=== PATIENT | male | born 1965 | race Caucasian/White ===

== ENCOUNTER → 2017-05-18 | Outpatient (CLI) | payer BC ==
--- NOTE | 2017-05-18 10:37 | US ---
EXAMINATION TYPE: US venous doppler duplex LE LT DATE OF EXAM: 05/18/2017 10:15 AM COMPARISON: NONE CLINICAL HISTORY: I82.4Z2 Acute embolism and thrombosis of unspecifi. Pain left knee, warmness left l ower leg, left ankle edema SIDE PERFORMED: Left TECHNIQUE: The lower extremity deep venous system is examined utilizing real time linear array sonog russ with graded compression, doppler sonography and color-flow sonography. VESSELS IMAGED: External Iliac Vein (EIV) Common Femoral Vein Deep Femoral Vein Greater Saphenous Vein * Femoral Vein Popliteal Vein Small Saphenous Vein * Proximal Calf Veins (* superficial vessels) Grayscale, color doppler, spectral doppler imaging performed of the deep veins of the left lower ext remity There is normal flow, compressibility, vascular waveforms . Left Leg: No evidence of DVT as visualized IMPRESSION: No evidence of DVT as visualized
== END ==
LOC: RADUSWWP 09:51
PROVIDERS: ATTEND Physical Medicine & Rehabilitation
DX: I82.4Z2 Acute embolism and thrombosis of unspecified deep veins of left distal lower extremity (principal)

== ENCOUNTER → 2018-10-26 | Outpatient (CLI) | payer BC ==
--- NOTE | 2018-10-26 15:21 | XR ---
EXAMINATION TYPE: XR chest 2V DATE OF EXAM: 10/26/2018 COMPARISON: Prior chest dated 10/15/2015 HISTORY: Localized enlarged lymph nodes in neck, hypertension TECHNIQUE: Frontal and lateral views of the chest are obtained. FINDINGS: There is no focal air space opacity, pleural effusion, or pneumothorax seen. The cardiac silhouette size is within normal limits. The osseous structures are intact. IMPRESSION: No acute cardiopulmonary process.
== END ==
LOC: RADXRMAIN 11:27
PROVIDERS: ATTEND Family Medicine
DX: R59.0 Localized enlarged lymph nodes (principal)
CPT/HCPCS: 71046

== ENCOUNTER → 2023-06-25 | Outpatient (CLI) | payer BC ==
--- NOTE | 2023-06-25 08:35 | CT ---
EXAMINATION TYPE: CT facial bones wo con CT DLP: 605.90 mGycm, Automated exposure control for dose reduction was used. DATE OF EXAM: 06/25/2023 8:05 AM COMPARISON: None. CLINICAL INDICATION:Male, 57 years old with history of M27.40 UNSPECIFIED CYST OF JAW; , Unspecified cyst of jaw TECHNIQUE: Multiple unenhanced axial CT images were obtained of the facial bones soft tissue and bone windows. Coronal, axial and sagittal reformatted images were also provided in soft tissue and bone windows and submitted for interpretation. FINDINGS: The mandible is without evidence for cyst. The TMJs are slightly subluxed anteriorly. There is no evidence of fracture, subluxation, dislocation, or significant soft tissue swelling. The orbit al contents are unremarkable.The temporal-mandibular joints appear symmetric. Mild paranasal sinus di sease with mucosal thickening most pronounced in the inferior aspect of the maxillary sinuses. IMPRESSION: 1. No evidence for cyst. 2. There is mild subluxation of the temporomandibular joints bilaterally. This is likely secondary p atient's popping (. 3. Mild paranasal sinus disease.
== END | disposition home or self-care (01) ==
LOC: RADCTMAIN 07:39
PROVIDERS: ATTEND Family Medicine
DX: J32.8 Other chronic sinusitis (principal); M27.40 Unspecified cyst of jaw; M26.69 Other specified disorders of temporomandibular joint
CPT/HCPCS: 70486

== ENCOUNTER → 2023-10-22 | Outpatient (CLI) | payer BC ==
--- NOTE | 2023-10-22 14:17 | CT ---
EXAMINATION TYPE: CT sinus wo con DATE OF EXAM: 10/22/2023 COMPARISON: 06/25/2023 HISTORY: chronic maxillary sinusitis CT DLP: 521.[address] of the paranasal sinuses was performed in the axial and coronal planes. Bone and soft tissue settings are submitted. Moderate opacification of the maxillary sinuses with a obstruction of the ostiomeatal units bilateral ly. Moderate to severe desiccation of the ethmoid air cells. Mild mucosal thickening of the sphenoid sinuses. Frontal sinuses are hypoaerated. Nasal septum is midline. The nasal septum is midline. No bony destructive changes are seen within the field of view. IMPRESSION: Moderate to severe pansinusitis. Underlying polyposis is not excluded. Interval progression since chiquita or study.
== END | disposition home or self-care (01) ==
LOC: RADCTMAIN 06:38
PROVIDERS: ATTEND Otolaryngology
DX: J32.4 Chronic pansinusitis (principal); J32.0 Chronic maxillary sinusitis
CPT/HCPCS: 70486